=== PATIENT | male | born 1995 | race African-American/Black ===

== ENCOUNTER 2018-06-01 17:14 | Inpatient (IN) | payer MEDICAID ==
[~2018-06-01] VITALS: Ht 175.3 cm; Wt 65.3 kg
[2018-06-01] MEDS ORDERED: SODIUM CHLORIDE 0.9% 1,000 ML IV ONE (18:01)
[2018-06-01 19:13] LABS: MEAN CORPUSCULAR VOLUME 61.7 fL (80.0-94.0); MEAN PLATELET VOLUME 8.3 fl (7.4-10.4); PLATELET 505 x1000/uL (130-400); RED BLOOD CELL COUNT 2.07 mill/uL (4.7-6.1); RED CELL DISTRIBUTION WIDTH 18.9 % (11.6-14.6)
[2018-06-01 19:19] LABS: CHLORIDE 105 mEq/L (98-107)
[2018-06-01 19:25] LABS: HEMATOCRIT. 12.8 % (42.0-52.0); HEMOGLOBIN. 3.3 g/dL (14.0-18.0)
[2018-06-01 20:30] LABS: PLATELET ESTIMATE INCREASED
[2018-06-01] MEDS ORDERED: LORAZEPAM 2MG/ML CPJ IV PRN (20:45)
[2018-06-01] MEDS ORDERED: IPRATROPIUM/ALBUTEROL 0.5-3(2.5)MG/3ML NEB INH PRN (20:45)
[2018-06-01] MEDS ORDERED: GUAIFENESIN 200MG/10ML SUGAR FREE UDC PO PRN (20:45)
[2018-06-01] MEDS ORDERED: HYDROCODONE/ACETAMINOPHEN 5/325MG TABLET PO PRN (20:45)
[2018-06-01] MEDS ORDERED: CLONIDINE 0.1MG TABLET PO PRN (20:45)
[2018-06-01] MEDS ORDERED: MAGNESIUM/ALUMINUM HYDROXIDE/SIMETHICONE 30ML UDC PO PRN (20:45)
[2018-06-01] MEDS ORDERED: ONDANSETRON HCL 4MG/2ML INJ IV PRN (20:45)
[2018-06-01] MEDS ORDERED: DIPHENHYDRAMINE 50MG/ML VIAL IV PRN (20:45)
[2018-06-01] MEDS ORDERED: HYDROMORPHONE HCL/PF 2MG/ML CPJ IV PRN (20:45)
[2018-06-01 22:45] VITALS: BP 104/43
[2018-06-01 22:55] LABS: CREATINE KINASE 68 IU/L (39-308)
[2018-06-01 22:57] LABS: CREATINE KINASE MB FRACTION < 1.0 ng/mL (0.5-3.6)
[2018-06-01 23:15] VITALS: BP 104/43
[2018-06-02] VITALS (21 sets, daily range): BP systolic 99–123; BP diastolic 43–85
[2018-06-02 00:58] LABS: HEMATOCRIT 13.5 % (42.0-52.0); HEMOGLOBIN 3.8 g/dL (14.0-18.0)
[2018-06-02] MEDS: ACETAMINOPHEN 325MG TABLET PO PRN ×2 (01:34→14:46)
[2018-06-02] MEDS: SODIUM CHLORIDE 0.9% INJ 3ML FLUSH IVF SCH ×4 (05:08→22:57)
[2018-06-02 06:07] LABS: HEMOGLOBIN 4.8 g/dL (14.0-18.0)
[2018-06-02 06:08] LABS: HEMATOCRIT 16.4 % (42.0-52.0)
[2018-06-02 06:43] LABS: CHLORIDE 109 mEq/L (98-107)
[2018-06-02 06:55] LABS: CREATINE KINASE 77 IU/L (39-308)
[2018-06-02 06:58] LABS: CREATINE KINASE MB FRACTION < 1.0 ng/mL (0.5-3.6)
[2018-06-02 07:07] LABS: BASOPHILS % 0.8 % (0.0-2.0); EOSINOPHILS % 2.2 % (0.0-5.0); LYMPHOCYTES % 29.6 % (20.0-50.0); MEAN CORPUSCULAR HEMOGLOBIN 20.8 pg (28.0-32.0); MEAN CORPUSCULAR VOLUME 69.5 fL (80.0-94.0); MEAN PLATELET VOLUME 7.9 fl (7.4-10.4); NEUTROPHILS % 58.4 % (40.0-76.0); PLATELET 303 x1000/uL (130-400); RED BLOOD CELL COUNT 2.33 mill/uL (4.7-6.1); RED CELL DISTRIBUTION WIDTH 25.2 % (11.6-14.6)
[2018-06-02 07:37] LABS: HEMATOCRIT. 16.2 % (42.0-52.0); HEMOGLOBIN. 4.9 g/dL (14.0-18.0)
[2018-06-02 11:26] LABS: TOTAL IRON BINDING CAPACITY 411 ug/dL (250-450)
[2018-06-02 11:57] LABS: VITAMIN B12 SERUM 369 pg/mL (211-911)
[2018-06-02] MEDS ORDERED: PNEUMOCOCCAL 23-VAL P-SAC VAC 0.5 ML IM ONE (12:00)
[2018-06-02] MEDS ORDERED: INFLUENZA VIRUS VACCINE(AFLURIA) 0.5ML SYR IM ONE (12:00)
[2018-06-02] MEDS ORDERED: METOCLOPRAMIDE HCL 5MG TABLET PO NR ×2 (16:00→20:00)
[2018-06-02] MEDS ORDERED: BISACODYL 5MG TABLET PO NR ×2 (16:00→20:00)
[2018-06-02 16:50] LABS: FERRITIN < 5 ng/mL (22-322)
[2018-06-02 16:53] LABS: HEMATOCRIT 17.8 % (42.0-52.0); HEMOGLOBIN 5.7 g/dL (14.0-18.0)
[2018-06-02] MEDS ORDERED: SORBITOL 70% SOLN 30ML PO NR ×2 (17:00→21:00)
[2018-06-02 19:49] LABS: HEMATOCRIT 21.5 % (42.0-52.0)
[2018-06-02 20:01] LABS: HEMOGLOBIN 6.6 g/dL (14.0-18.0)
[2018-06-02] MEDS: DEXT 5%/0.45% NACL 1000ML 1,000 ML IV SCH (22:57)
[2018-06-03] VITALS (11 sets, daily range): BP systolic 108–121; BP diastolic 46–72
[2018-06-03] MEDS ORDERED: BISACODYL 5MG TABLET PO NR
[2018-06-03] MEDS ORDERED: METOCLOPRAMIDE HCL 10MG/2ML VIAL IV NR
[2018-06-03] MEDS ORDERED: SORBITOL 70% SOLN 30ML PO NR ×2 (00:30→01:00)
[2018-06-03] MEDS ORDERED: BISACODYL 5MG TABLET PO SCH (04:00)
[2018-06-03] MEDS ORDERED: METOCLOPRAMIDE HCL 10MG/2ML VIAL IV SCH (04:00)
[2018-06-03] MEDS: SODIUM CHLORIDE 0.9% 1,000 ML IV SCH ×2 (04:22→21:19)
[2018-06-03] MEDS ORDERED: SORBITOL 70% SOLN 30ML PO SCH (04:30)
[2018-06-03] MEDS: SODIUM CHLORIDE 0.9% INJ 3ML FLUSH IVF SCH ×3 (06:18→21:19)
[2018-06-03 06:39] LABS: BASOPHILS % 1.1 % (0.0-2.0); EOSINOPHILS % 2.8 % (0.0-5.0); HEMATOCRIT. 29.6 % (42.0-52.0); HEMOGLOBIN. 9.6 g/dL (14.0-18.0); MEAN CORPUSCULAR HEMOGLOBIN 24.3 pg (28.0-32.0); MEAN CORPUSCULAR VOLUME 74.6 fL (80.0-94.0); MEAN PLATELET VOLUME 8.2 fl (7.4-10.4); MONOCYTES % 11.4 % (2.0-8.0); NEUTROPHILS % 69.7 % (40.0-76.0); PLATELET 321 x1000/uL (130-400); RED BLOOD CELL COUNT 3.96 mill/uL (4.7-6.1); RED CELL DISTRIBUTION WIDTH 24.4 % (11.6-14.6)
[2018-06-03 06:40] LABS: INR 1.1; PARTIAL THROMBOPLASTIN TIME 21.9 sec (23.4-31.0); PROTHROMBIN TIME 10.8 sec (9.1-11.1)
[2018-06-03 07:13] LABS: CHLORIDE 112 mEq/L (98-107)
[2018-06-03] MEDS: DEXT 5%/0.45% NACL 1000ML 1,000 ML IV SCH ×2 (08:29→18:40)
[2018-06-03 10:58] LABS: PLATELET ESTIMATE NORMAL
[2018-06-03] MEDS ORDERED: MIDAZOLAM HCL 5 MG/5 ML VIAL ONE (12:02)
[2018-06-03] MEDS ORDERED: FENTANYL CITRATE/PF 50MCG/ML 2ML VIAL ONE (12:02)
[2018-06-03] MEDS ORDERED: MIDAZOLAM HCL 5 MG/5 ML VIAL IV PRN (12:26)
[2018-06-03] MEDS ORDERED: FENTANYL CITRATE/PF 50MCG/ML 2ML VIAL IV PRN (12:28)
[2018-06-03] MEDS ORDERED: DIPHENHYDRAMINE 50MG/ML VIAL ONE (12:33)
[2018-06-03] MEDS ORDERED: SODIUM CHLORIDE 0.9% 10ML VIAL ONE (14:10)
[2018-06-03] MEDS: DOCUSATE SODIUM 100MG CAPSULE PO SCH (18:36)
[2018-06-03] MEDS: HYDROCORTISONE ACETATE 25MG SUPP PR SCH (18:37)
[2018-06-03] MEDS ORDERED: IRON SUCROSE COMPLEX 100 MG/5 ML ML IV SCH (20:00)
[2018-06-04] VITALS (13 sets, daily range): BP systolic 99–126; BP diastolic 56–76
[2018-06-04] MEDS: SODIUM CHLORIDE 0.9% INJ 3ML FLUSH IVF SCH ×2 (05:51→14:19)
[2018-06-04] MEDS: DEXT 5%/0.45% NACL 1000ML 1,000 ML IV SCH (05:51)
[2018-06-04 07:40] LABS: CHLORIDE 107 mEq/L (98-107)
[2018-06-04 07:57] LABS: BASOPHILS % 2.2 % (0.0-2.0); EOSINOPHILS % 4.4 % (0.0-5.0); HEMATOCRIT. 21.3 % (42.0-52.0); LYMPHOCYTES % 19.9 % (20.0-50.0); MEAN CORPUSCULAR HEMOGLOBIN 23.7 pg (28.0-32.0); MEAN CORPUSCULAR VOLUME 75.9 fL (80.0-94.0); MEAN PLATELET VOLUME 8.3 fl (7.4-10.4); MONOCYTES % 10.1 % (2.0-8.0); NEUTROPHILS % 63.4 % (40.0-76.0); PLATELET 268 x1000/uL (130-400); RED CELL DISTRIBUTION WIDTH 24.7 % (11.6-14.6)
[2018-06-04 08:18] LABS: HEMOGLOBIN. 6.6 g/dL (14.0-18.0)
[2018-06-04] MEDS ORDERED: IRON SUCROSE COMPLEX 100 MG/5 ML ML IV SCH (09:00)
[2018-06-04] MEDS: HYDROCORTISONE ACETATE 25MG SUPP PR SCH ×3 (09:20→18:46)
[2018-06-04] MEDS: DOCUSATE SODIUM 100MG CAPSULE PO SCH ×2 (09:21→18:46)
[2018-06-05 08:13] LABS: HIV SCREEN 4G Non Reactive (Non Reactive)
== END 2018-06-04 20:28 | disposition left against medical advice (07) | DRG 253 ==
LOC: ER 17:14 → 5WST 20:19 → EDBEDREQ 20:29 → EDBEDREQTM 20:29 → ENRESERV 21:53
PROVIDERS: ADMIT Internal Medicine; ATTEND Internal Medicine
PROC: 30233N1 Transfusion of Nonautologous Red Blood Cells into Peripheral Vein, Percutaneous Approach (ICD-10-PCS; 2018-06-01)
PROC: 0DJD8ZZ Inspection of Lower Intestinal Tract, Via Natural or Artificial Opening Endoscopic (ICD-10-PCS; principal; 2018-06-03 11:00)
DX: K92.2 Gastrointestinal hemorrhage, unspecified (principal); D50.0 Iron deficiency anemia secondary to blood loss (chronic); E86.0 Dehydration; K64.8 Other hemorrhoids; Z53.21 Procedure and treatment not carried out due to patient leaving prior to being seen by health care provider; S31.829A Unspecified open wound of left buttock, initial encounter; X58.XXXA Exposure to other specified factors, initial encounter; Y93.89 Activity, other specified; Y92.89 Other specified places as the place of occurrence of the external cause; Y99.8 Other external cause status
CPT/HCPCS: 36415; 74176; 78278; 80048; 82550; 82553; 82607; 82728; 82746; 83540; 83550; 84443; 84484; 85014; 85018; 86850; 86900; 86920; 87389; 90686; 90732; 93005; 96360; 99291; A4216; A9560; J1200; J2250; J2765; J3010; J3490; J7030; J7040; J7050; J8597; P9016